=== PATIENT | female | born 1980 | race Caucasian/White ===

== ENCOUNTER 2018-07-19 08:56 | Emergency (ER) | payer SELFPAY ==
[2018-07-19 08:58] VITALS: BP 104/73; PULSE 118; RESP 15; TEMP 35.7; O2SAT 98; BMI 21.0
--- NOTE | 2018-07-19 09:09 | ED.VIS.GEN ---
History of Present Illness Chief Complaint: Flank Pain Informant: Patient Onset: Yesterday Context: Sudden Onset Timing: Continuous Quality: Pain Location: Right flank Current Severity: Mild Maximum Severity: Moderate Worsened by: Walking and palpation Relieved by: Nothing Associated Symptoms: Nausea, documented temperature 102.5 ?F and pressure with urination Narrative: Patient is a 38-year-old woman who presents with right flank pain and pressure with urination. Pressure with urination started Sunday. She also reports frequency. She denies hematuria. She reports document temperature to 102.5 degrees. She took ibuprofen 600 mg prior to arrival. She states the right flank pain started yesterday. There is no history of renal ureterolithiasis. She is presently menstruating and timing, quantity and color are normal. She reports no symptoms of . She states she has had a bladder infection twice in the past. She is never had a kidney infection. She does report headache with some visual disturbance yesterday that was transient. She does report nasal congestion. She denies earache or sore throat. She does cough. She is a smoker. The cough is nonproductive. She denies vomiting, diarrhea, hematemesis, melena or hematochezia. Prior similar symptoms: No Recent Illness/Hospitalization: No - Past Medical History (1) No significant past medical history Status: Acute Past Medical History - Allergies and Home Meds Allergies/Adverse Reactions: Allergies No Known Allergies Allergy (Verified 07/19/18 08:58) Primary Care Physician: Care Physician,No Primary [Primary Care Provider] - Past Medical History: None Surgical History: - - x1 Lives: Spouse/ Significant Other, With Family Smoking Status: Current every day smoker Alcohol: None Drugs: None Review of Systems General: Reports: Chills, Fever, Malaise. Denies: Sweats, Weight loss Eyes: Denies: Visual changes - bilaterally, Diplopia ENT: Denies: Rhinorrhea, Sore throat Cardiovascular: Denies: Chest pain, Palpitations Respiratory: Denies: Dyspnea, Cough, Dyspnea on exertion Gastrointestinal: Denies: Abdominal pain, Nausea, Vomiting, Diarrhea, Melena, Hematochezia Genitourinary: Reports: Frequency, - - Patient reports pressure with urination not dysuria.. Denies: Dysuria, Hematuria Musculoskeletal: Reports: Back pain - Right flank. Denies: Myalgias, Arthralgias, Neck pain, Swelling, Extremity Pain Skin: Denies: Rash, Wounds Neurological: Reports: Headache Hematologic: Denies: Easy bruising, Easy bleeding Allergy: Denies: Uticaria Physical Exam Vital Signs/Narrative: Vital Signs Temp Pulse Resp BP Pulse Ox 07/19/18 08:58 96.3 F L 118 H 15 104/73 98 Inital Vital Signs reviewed: Yes General: Well nourished, Well developed, No Acute Distress Head: Normocephalic, Atraumatic Eyes: Perrl, EOMI. Negative for: Pale conjunctiva, Scleral icterus ENT: No rhinorrhea, TM's clear, Dry mucous membranes Neck: Supple, Nontender, No lymphadenopathy, No JVD, - Cardiovascular: Regular rhythm, No murmurs, Normal S1, Normal S2, Tachycardia Respiratory: No distress, CTA bilaterally, Chest nontender Abdomen: Soft, Nontender, Nondistended, Normal bowel sounds, No masses, - - Patient reported slight discomfort with deep palpation over the suprapubic region.. Negative for: Tender, Guarding, Rebound tenderness Rectal: Deferred Back: Nontender, Normal Inspection, CVA tenderness - Right side Extremities: Nontender, No edema Skin: Normal color, No rash, No Trauma. Negative for: Cyanosis, Jaundice Neurological: Alert, Oriented x3, Cranial nerves II-XII grossly intact, Normal Strength, Normal Sensation, Normal Gait Psychological: Normal affect, Normal Mood Diagnostic/Tx/Re-eval - Medical Decision Making With reported fever of 102.5 ?F, pressure with urination and right flank pain concern patient has pyelonephritis. Differential would include obstructing ureteral stone that is infected. Complex urinary tract infection. Since clinically patient appears dehydrated she received 1 L of normal saline and was treated with Zofran for her nausea. Patient's urine is not clear and slightly turbid. Will obtain urine culture as well as CBC and BMP. BMP was obtained to assess renal function. She will receive 1 g of Rocephin IV piggyback. Will reassess once lab results are available for review. Patient was reassessed at 1000. She is smiling. Once antibiotic has infused will discharge to home with 7-day course of ciprofloxacin and Zofran for her nausea. ED Disposition - Plan for ED Patient: Disposition: Home or Assisted Living Diagnosis: Acute pyelonephritis, Sepsis due to urinary tract infection Instructions: ED Kidney Infec Female Prescriptions: Ondansetron [Zofran Odt] 4 mg PO Q8H PRN PRN #5 tablet PRN Reason: Nausea Ciprofloxacin [Cipro] 500 mg PO BID #14 tablet Referrals: Care Physician,No Primary [Primary Care Provider] - Additional Instructions: Follow-up in 3 days with your primary care provider. Your primary care provider's name is on your insurance card. Your prescription was electronically transmitted to [facility] your designated pharmacy of choice.
[2018-07-19 09:17] LABS: Mucous, Urine 0 SEEN /hpf (<or=2+)
[2018-07-19 09:26] LABS: Color, Urine Yellow (Yellow); Glucose, Dipstick Normal (Normal); Ketone-Dipstick Negative (Negative); Leukocyte Esterase-Dipstick 500 /ul (Negative); Nitrite-Dipstick Positive (Negative); Occult Blood-Urine 150 /ul (Negative); Protein-Dipstick 100 mg/dl (Negative); Urine Bilirubin Dipstick Negative (Negative); Urine Clarity Sl. Cloudy (Clear); Urine Urobilinogen 4 mg/dl (Normal)
[2018-07-19] MEDS: Ondansetron 4 MG/2 ML Vial IV (09:29)
[2018-07-19] MEDS: 0.9% Normal Saline 1,000 ML 1000 ML IV (09:29)
[2018-07-19 09:34] LABS: Bacteria 2+ /hpf (None Seen); Red Blood Cells-Urine 10-25 SEEN /hpf (0-5); Squamous Epithelial Cells - UA 0-5 SEEN /hpf (5-10); White Blood Cells 25-50 SEEN /hpf (0-5)
[2018-07-19 09:45] LABS: Anion Gap 7 (5-15); BUN 13 mg/dL (7-18); BUN/Creat Ratio 12.6 RATIO (10-20); Chloride 96 mmol/L (98-107); Creatinine, Serum 1.03 mg/dL (0.55-1.02); EST Glomerular Filtration Rate 64 mL/min (>60); Est Glom Filt Rate - Afr Amer 77 mL/min (>60); Estimated Creatinine Clearance 69.94 ml/min; Glucose 116 mg/dL (74-106); Potassium 3.5 mmol/L (3.5-5.1); Sodium Level 128 mmol/L (136-145)
[2018-07-19 09:48] LABS: Absolute Lymphocyte Count 1.58 X10^3/ul (0.83-4.51); Absolute Neutrophil Count 13.5 X10^3/uL (2.0-7.7); Basophil# 0.02 X10^3/uL; Basophil% 0.1 % (0-1); Eosinophil# 0.01 X10^3/uL; Eosinophils% 0.1 % (0-5); Hematocrit 35.1 % (37-47); Hemoglobin 12.2 g/dl (12.0-15.0); Lymphocyte # 1.58 X10^3/ul (4.0); Lymphocyte % 9.5 % (19-41); Mean Corp Hgb Conc 34.8 g/gl (32-36); Mean Corpuscular Hgb 30.1 pg (27.0-32.0); Mean Corpuscular Volume 86.7 fL (81-99); Mean Platelet Vol. 8.8 fl (6.2-12.0); Monocyte# 1.52 X10^3/uL; Monocyte% 9.1 % (0-10); Platelet Count 264 K/mm3 (150-450); RBC Distribution Width CV 11.6 % (11.6-14.6); Red Blood Count 4.05 M/mm3 (4.2-5.4); White Blood Count 16.7 K/mm3 (4.4-11.0)
[2018-07-19 09:52] LABS: Differential Indicated SCAN CRITERIA MET; POSITIVE COUNT NO; POSITIVE DIFFERENTIAL YES; POSITIVE MORPHOLOGY NO
[2018-07-19 10:38] VITALS: BP 106/75; PULSE 107; RESP 16; TEMP 39.4; O2SAT 100
[2018-07-19] MEDS: Ceftriaxone 1 GM/50 ML BAG IV (10:39)
[2018-07-19 11:15] VITALS: BP 101/60; PULSE 105; RESP 16; O2SAT 100
[2018-07-19] MEDS: Acetaminophen 325 MG Tablet 650 MG PO (11:15)
[2018-07-22 10:04] LABS: Pathologist Review Reviewed
== END 2018-07-19 11:28 | disposition home or self-care (01) ==
PROVIDERS: Emergency Provider Emergency Medicine
DX: A41.9 Sepsis, unspecified organism (principal); N10 Acute pyelonephritis; F17.200 Nicotine dependence, unspecified, uncomplicated; Z87.440 Personal history of urinary (tract) infections
CPT/HCPCS: 80048; 81001; 85025; 87086; 87088; 87186; 96361; 96365; 96375; 99285; J7030; J7050; A4216; J2405